=== PATIENT | male | born 1985 | race Caucasian/White ===

== ENCOUNTER 2016-12-09 08:32 | Emergency (ER) | payer OTHER ==
[2016-12-09 08:36] VITALS: BP 140/89; PULSE 124; TEMP 97; O2SAT 99; BMI 23.0
--- NOTE | 2016-12-09 09:00 | ED PDOC ---
Lower Extremity Pain/Injury Time Seen by Provider: 12/09/16 08:47 Chief Complaint (Provider): Left leg pain History Per: Patient History/Exam Limitations: no limitations Onset/Duration Of Symptoms: Days (x 2) Current Symptoms Are (Timing): Still Present Additional Complaint(s): Juan J is a 31 y/o male with no past medical history who presents to the ED complaining of left lower leg pain, ongoing since yesterday. States noticing the pain while sitting on the couch, denies injury or trauma to the area. Patient noticed red patch of skin this morning, which prompted ED visit. Denies fever, chills, and shortness of breath. 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 Patient concerned about possibility of DVT. PMD: Dr. Rios Past Medical History Reviewed: Historical Data, Nursing Documentation, Vital Signs Vital Signs: Last Vital Signs Temp 97 F L 12/09/16 08:35 Pulse 124 H 12/09/16 08:35 Resp BP 140/89 12/09/16 08:35 Pulse Ox 99 12/09/16 08:35 - Medical History PMH: No Chronic Diseases - Surgical History Other surgeries: Umbilical hernia repair - Family History Family History: States: No Known Family Hx - Social History Current smoker - smoking cessation education provided: No Alcohol: Occasional Drugs: Denies - Home Medications Home Medications: Ambulatory Orders Medication Instructions Recorded Triamcinolone 0.1% [Triamcinolone 1 appl TP BID #30 g 12/09/16 0.1% Cream] - Allergies Allergies/Adverse Reactions: Allergies Allergy/AdvReac Type Severity Reaction Status Date / Time Penicillins Allergy RASH Verified 12/09/16 08:54 Review of Systems ROS Statement: Except As Marked, All Systems Reviewed And Found Negative Constitutional: Negative for: Fever, Chills Respiratory: Negative for: Shortness of Breath Musculoskeletal: Positive for: Leg Pain (Left lower leg pain with redness). Negative for: Other (swelling) Physical Exam - Reviewed Nursing Documentation Reviewed: Yes Vital Signs Reviewed: Yes - Physical Exam Appears: Positive for: Well, Non-toxic, No Acute Distress Head Exam: Positive for: ATRAUMATIC, NORMAL INSPECTION, NORMOCEPHALIC Skin: Positive for: Warm, Dry Eye Exam: Positive for: EOMI, Normal appearance, PERRL Neck: Positive for: Normal, Painless ROM, Supple Extremity: Positive for: Normal ROM, Other (Flat patch of redness at left lower extremity measuring 4 x 3.5 cm, irregular oval shape. No fluctuance. ). Negative for: Tenderness, Calf Tenderness, Swelling Neurologic/Psych: Positive for: Alert, Oriented - ECG O2 Sat by Pulse Oximetry: 99 (RA) Pulse Ox Interpretation: Normal Medical Decision Making Medical Decision Making: Time: 08:57 Initial Impression: Rule out DVT Initial Plan: --Pending US Duplex Lower Extremity Vein Scribe Attestation: Documented by Giovanna Robb, acting as a scribe for Ciara Walton MD Provider Scribe Attestation: All medical record entries made by the Scribe were at my direction and personally dictated by me. I have reviewed the chart and agree that the record accurately reflects my personal performance of the history, physical exam, medical decision making, and the department course for this patient. I have also personally directed, reviewed, and agree with the discharge instructions and disposition. 10.15a - preliminary US reading - negative for DVT. Will discharge. Disposition - Clinical Impression Clinical Impression: Leg pain, Dermatitis - Patient ED Disposition Is Patient to be Admitted: No Doctor Will See Patient In The: Office Counseled Patient/Family Regarding: Diagnosis, Need For Followup, Rx Given - Disposition Referrals: [facility] [Outside] Disposition: Routine/Home Disposition Time: 10:21 Condition: STABLE Prescriptions: Triamcinolone 0.1% [Triamcinolone 0.1% Cream] 1 appl TP BID #30 g Instructions: Dermatitis (ED) Forms: [facility] ([facility]) - POA Present On Arrival: None
--- NOTE | 2016-12-09 15:41 | US ---
HISTORY: patient concerned about DVT . PRIORS: None. FINDINGS: 2-D, color and duplex Doppler analysis of the lower extremity venous circulation using routine protocol from the femoral veins through the popliteal veins. Venous compressibility: Normal. Flow and augmentation patterns: Normal. Visualized veins upper third of calf: Normal. Moe cyst: None. IMPRESSION: No sonographic or Doppler evidence for DVT in left lower extremity.
== END 2016-12-09 10:30 | disposition home or self-care (01) ==
LOC: H.ER 08:32
DX: L30.9 Dermatitis, unspecified (principal); M79.605 Pain in left leg